=== PATIENT | male | born 1960 | race Two or more races ===

== ENCOUNTER 2024-09-29 06:49 | Day surgery (SDC) | payer OTHER ==
[2024-09-25 09:58] VITALS: BP 133/81
[2024-09-25 10:12] LABS: URINE APPEARANCE Clear; URINE BILIRRUBIN Negative (NEGATIVE); URINE BLOOD Negative; URINE COLOR Yellow; URINE GLUCOSE Negative (NEGATIVE); URINE KETONE Trace (NEGATIVE); URINE LEUKOCYTE Negative; URINE NITRATE Negative; URINE PROTEIN Trace (NEGATIVE); URINE UROBILINOGEN 0.2 E.U./dl
[2024-09-25 10:15] LABS: BASO % 1.1 % (0.1-1.2); EOS # 0.25 (0.04-0.54); EOS % 3.9 % (0.7-7.0); HEMATOCRIT 45.2 % (40.1-51.0); HEMOGLOBIN 15.7 g/dL (13.7-17.5); LYMPH # 1.68 (1.18-3.74); MEAN CORPUSCULAR HEMOGLOBIN 29.5 pg (25.6-32.2); MONO # 0.64 (0.24-0.82); MONO % 9.9 % (4.7-12.5); NEUT # 3.81 (1.56-6.13); NEUT % 58.8 % (34.0-71.1); PLATELET COUNT 195 K/uL (163-369); RED BLOOD COUNT 5.32 M/uL (4.63-6.08)
[2024-09-25 10:17] LABS: URINE BACTERIA 7.3 uL (0.0-1933); URINE WBC 2.3 uL (0.0-23.2)
[2024-09-25 10:44] LABS: URINE EPITHELIAL CELLS 1.1 uL (0.0-38.8)
[2024-09-25 10:55] LABS: INR 1.05; PARTIAL THROMBOPLASTIN TIME 27.9 SECONDS (22.0-34.0); PROTHROMBIN TIME 11.4 SECONDS (9.0-11.5)
[2024-09-25 10:56] LABS: ALBUMIN 4.4 gm/dL (3.4-5.0); BILIRUBIN TOTAL 1.46 mg/dL (0.3-1.2); CALCIUM 9.2 mg/dL (8.5-10.1); CREATININE SERUM 0.89 mg/dL (0.70-1.30); GFR 86.61; POTASSIUM 4.41 mEq/L (3.5-5.1); TOTAL PROTEIN 7.4 gm/dL (6.4-8.2)
[~2024-09-29] VITALS: Ht 172.7 cm; Wt 89.8 kg
[~2024-09-29 06:49] MED LIST: ALTACE5 MG PO
[2024-09-29] MEDS ORDERED: METRONIDAZOLE/SODIUM CHLORIDE 500 MG/100 ML PIGGYBACK IV ONE (07:38)
[2024-09-29] MEDS ORDERED: CEFTRIAXONE SODIUM 2,000 MG VIAL ONE (07:38)
[2024-09-29] MEDS ORDERED: POVIDONE-IODINE 118 ML BOTT TOP ONE (08:50)
[2024-09-29] MEDS ORDERED: HEMOSTATIC MATRIX 1 KIT KIT TOP ONE (08:50)
[2024-09-29] MEDS ORDERED: DIBUCAINE 30 GM TUBE ONE (08:50)
[2024-09-29] MEDS ORDERED: LIDOCAINE HCL 1%/EPINEPHRINE 20ML VIAL IJ ONE (08:51)
[2024-09-29] MEDS ORDERED: BUPIVACAINE HCL/Mpf 0.5% 10ML VIAL ONE (08:51)
[2024-09-29] MEDS ORDERED: NEURONTIN300 MG PO (10:01)
[2024-09-29] MEDS ORDERED: PERCOCET 5-3251 EACH PO (10:01)
[2024-09-29] MEDS ORDERED: COLACE100 MG PO (10:01)
== END 2024-09-29 14:50 | disposition home or self-care (01) ==
LOC: CIR.AMB 06:49
PROVIDERS: ATTEND Surgery
DX: K64.2 Third degree hemorrhoids (principal); K64.4 Residual hemorrhoidal skin tags; K62.89 Other specified diseases of anus and rectum